=== PATIENT | female | born 1950 | race Caucasian/White ===

== ENCOUNTER 2017-05-01 11:28 | Emergency (ER) | payer OTHER ==
[2017-05-01 12:16] LABS: BILIRUBIN,URINE NEGATIVE (NEGATIVE); UA w/ MICROSCOPIC CHARGE YES
[2017-05-01 12:29] LABS: BASOPHILS # (AUTO) 0.1 10^3/uL (0.0-0.1); BASOPHILS % (AUTO) 1.1 %; EOSINOPHILS # (AUTO) 0.1 10^3/uL (0.0-0.7); HCT - HEMATOCRIT 37.9 % (37.0-47.0); HGB - HEMOGLOBIN 12.8 g/dL (12.0-16.0); LYMPHOCYTES # (AUTO) 1.3 10^3/uL (1.5-3.5); LYMPHOCYTES % (AUTO) 18.2 %; MEAN CORPUSCULAR HEMOGLOBIN 31.8 pg (27.0-31.0); MEAN CORPUSCULAR HGB CONC 33.8 g/dL (32.0-36.0); MEAN PLATELET VOLUME 9.5 fL (7.9-10.8); MONOCYTES # (AUTO) 0.9 10^3/uL (0.0-1.0); MONOCYTES % (AUTO) 12.2 %; NEUTROPHILS # (AUTO) 4.9 10^3/uL (1.5-6.6); NEUTROPHILS % (AUTO) 67.5 %; RED BLOOD COUNT 4.03 10^6/uL (4.20-5.40); RED CELL DISTRIBUTION WIDTH 12.5 % (12.0-15.0); UNCORRECTED WHITE BLOOD COUNT 7.2 x10^3/uL; WHITE BLOOD COUNT 7.2 x10^3/uL (4.8-10.8)
[2017-05-01 12:30] LABS: UR CULTURE IF IND NOT INDICATED
[2017-05-01 12:40] LABS: ALBUMIN/GLOBULIN RATIO 1.1 (1.0-2.2); BILIRUBIN,TOTAL 0.5 mg/dL (0.2-1.0); CALCIUM 9.9 mg/dL (8.5-10.3); CREATININE 1.4 mg/dL (0.4-1.0); POTASSIUM 3.8 mmol/L (3.5-5.0); TOTAL PROTEIN 8.3 g/dL (6.7-8.2)
[2017-05-01] MEDS ORDERED: SODIUM CHLORIDE 0.9% 1,000 ML IV ONE (12:55)
--- NOTE | 2017-05-01 12:59 | ED Physician Documentation ---
PD HPI ABD PAIN - Stated complaint Stated Complaint: ABDOMINAL PAIN - Chief complaint Chief Complaint: Abd Pain - History obtained from History obtained from: Patient - History of Present Illness Timing - onset: How many days ago (4) Timing - duration: Days (4) Timing - details: Gradual onset, Still present, Intermittant, Waxing and waning Quality: Cramping, Sharp, Pain Location: Suprapubic Radiation: Other Improved by: Other (nothing) Worsened by: Other (nothing) Associated symptoms: Nausea, Hematuria. No: Fever, Vomiting, Hematemesis, Diarrhea, Constipation, Dysuria Similar symptoms before: Has not had sx before Recently seen: Not recently seen - Additional information Additional information: 66-year-old female is visiting from [place] and has had suprapubic sharp cramping pains intermittently since 4 days ago. She states the pain is brief in nature repetitive and has not stopped. She has noticed blood in the urine as well. Review of Systems Constitutional: denies: Fever, Chills Eyes: denies: Decreased vision Ears: denies: Ear pain Nose: denies: Congestion Throat: denies: Sore throat Cardiac: denies: Chest pain / pressure, Palpitations Respiratory: denies: Cough, Wheezing GI: reports: Abdominal Pain, Nausea. denies: Vomiting, Diarrhea : reports: Hematuria. denies: Dysuria, Frequency Skin: denies: Rash Musculoskeletal: denies: Neck pain, Back pain, Extremity pain PD PAST MEDICAL HISTORY - Past Surgical History Ortho: Hip replacement - Present Medications Home Medications: Ambulatory Orders Medication Instructions Recorded Confirmed Ciprofloxacin HCl [Cipro] 500 mg PO BID #14 tablet 05/01/17 Metronidazole [Flagyl] 500 mg PO BID #14 tablet 05/01/17 - Allergies Allergies/Adverse Reactions: Allergies Allergy/AdvReac Type Severity Reaction Status Date / Time No Known Drug Allergies Allergy Verified 05/01/17 11:53 - Social History Does the pt smoke?: No Smoking Status: Never smoker Does the pt drink ETOH?: Yes ETOH Use: Wine PD ED PE NORMAL - Vitals Vital signs reviewed: Yes (hypertensive ) - General General: Alert and oriented X 3, No acute distress, Well developed/nourished - HEENT HEENT: Atraumatic, PERRL, EOMI - Neck Neck: Supple, no meningeal sign, No bony TTP - Cardiac Cardiac: RRR, No murmur - Respiratory Respiratory: No respiratory distress, Clear bilaterally - Abdomen Abdomen: Soft, Non tender, No organomegaly - Back Back: No CVA TTP, No spinal TTP - Derm Derm: Normal color, Warm and dry, No rash - Extremities Extremities: No deformity, No edema - Neuro Neuro: No motor deficit, No sensory deficit Eye Opening: Spontaneous Motor: Obeys Commands Verbal: Oriented GCS Score: 15 - Psych Psych: Normal mood, Normal affect Results - Vitals Vitals: Vital Signs - 24 hr 05/01/17 05/01/17 11:49 13:19 Temperature 36.4 C L 36.8 C Heart Rate 69 78 Respiratory 16 16 Rate Blood Pressure 150/88 H 141/64 H O2 Saturation 100 100 Oxygen O2 Source Room air - Labs Labs: Laboratory Tests 05/01/17 05/01/17 05/01/17 12:10 12:20 12:20 WBC 7.2 RBC 4.03 L Hgb 12.8 Hct 37.9 MCV 94.0 MCH 31.8 H MCHC 33.8 RDW 12.5 Plt Count 275 MPV 9.5 Neut # 4.9 Lymph # 1.3 L [place] # 0.9 Eos # 0.1 Baso # 0.1 Absolute Nucleated RBC 0.00 Nucleated RBC % 0.0 Sodium 135 Potassium 3.8 Chloride 97 L Carbon Dioxide 24 Anion Gap 14.0 H BUN 19 Creatinine 1.4 H Estimated GFR (MDRD) 38 L Glucose 113 H Calcium 9.9 Total Bilirubin 0.5 AST 23 ALT 16 Alkaline Phosphatase 53 Total Protein 8.3 H Albumin 4.4 Globulin 3.9 Albumin/Globulin Ratio 1.1 Lipase 26 Urine Color DARK YELLOW Urine Clarity HAZY Urine pH 6.0 Ur Specific [place] 1.025 Urine Protein 30 H Urine Glucose (UA) NEGATIVE Urine Ketones NEGATIVE Urine Occult Blood LARGE H Urine Nitrite NEGATIVE Urine Bilirubin NEGATIVE Urine Urobilinogen 0.2 (NORMAL) Ur Leukocyte Esterase NEGATIVE Urine RBC 11-25 H Urine WBC 4-5 Ur Squamous Epith Cells RARE Squamous Amorphous Sediment Few Urine Bacteria Few Urine Casts 3-5 RBC Casts Urine Yeast PRESENT Ur Microscopic Review INDICATED Urine Culture Comments NOT INDICATED - Rads (name of study) CT abdomen and pelvis without Radiology: Prelim report reviewed (Impression: 1. Sigmoid diverticulosis with mild wall thickening and adjacent fat stranding. Early sigmoid diverticulitis is the most likely diagnosis. 2. No complications such as perforation, obstruction or abscess. 3. No urinary tract stones or obstruction.), EMP read indepedently, See rad report Procedures - Bedside sono Bedside sono by EMP: With use of bedside ultrasound the right kidney is imaged there is some evidence of mild hydronephrosis and the kidney is sonographically nontender. The left kidney is imaged it is sonographically nontender and there is no evidence of hydronephrosis. PD MEDICAL DECISION MAKING - ED course Complexity details: reviewed results, re-evaluated patient, considered differential, d/w patient ED course: 66-year-old [place] has developed acute diverticulitis with some suprapubic pain and she has a normal white blood cell count she is not vomiting. She has pain that appears to be tolerable. Departure - Departure Disposition: 01 Home, Self Care Clinical Impression: Diverticulitis Condition: Stable Instructions: ED Diverticulitis Follow-Up: Your, doctor [Other] Prescriptions: Ciprofloxacin HCl [Cipro] 500 mg PO BID #14 tablet Metronidazole [Flagyl] 500 mg PO BID #14 tablet
[2017-05-01 13:20] VITALS: BP 141/64
--- NOTE | 2017-05-01 14:28 | CT Preliminary Report ---
Exam: CT ABDOMEN/PELVIS W/O IMPRESSION: 1. Sigmoid diverticulosis with no wall thickening and adjacent fat stranding. Early sigmoid diverticu litis is a most likely diagnosis. 2. No complications such as perforation, obstruction or abscess. 3. No urinary tract stones or obstruction. Comment: Study limited due to streak artifact related to the hip arthroplasty. [facility] SITE ID: [id number]
--- NOTE | 2017-05-01 14:43 | CT Report ---
EXAM: CT ABDOMEN AND PELVIS (CT KUB) EXAM DATE: 05/01/2017 01:39 PM. CLINICAL HISTORY: Hematuria, right-sided pain. COMPARISONS: None. TECHNIQUE: Routine axial helical CT imaging was performed through the abdomen and pelvis without IV c ontrast. Reconstructions: Coronal and sagittal. In accordance with CT protocol optimization, one or more of the following dose reduction techniques w ere utilized for this exam: automated exposure control, adjustment of mA and/or KV based on patient s ize, or use of iterative reconstructive technique. FINDINGS: Lung Bases: Unremarkable. Right Kidney/Ureter: No stones, hydronephrosis, or hydroureter. No perinephric fat stranding. Left Kidney/Ureter: No stones, hydronephrosis, or hydroureter. No perinephric fat stranding. Other Solid Organs: Noncontrast images of the solid organs are grossly unremarkable. Gallbladder/Bile Ducts: Fluid/fluid density is noted in the gallbladder without active inflammation. No common bile duct dilation. Peritoneal Cavity: No free fluid, free air or nam adenopathy. Bowel is grossly unremarkable. There are multiple diverticula seen which most severely affect the sigmoid colon. Mild stranding adjacent to the mid sigmoid colon best seen on image 65 is noted. Mild colonic wall thickening is noted. No co mplications such as obstruction, perforation or an abscess. Normal appendix noted. No right lower warren drant inflammation. Pelvic Organs: Coarse calcifications are noted in the left adnexal region. No bladder stones or wall thickening. Noncontrast images of the visualized pelvic organs are unremarkable. Vasculature: Unremarkable. Other: Status post left hip arthroplasty. Normal alignment. No osteoblastic osteolytic lesions are no carey. IMPRESSION: 1. Sigmoid diverticulosis with mild wall thickening and adjacent fat stranding. Early sigmoid diverti culitis is the most likely diagnosis. 2. No complications such as perforation, obstruction or abscess. 3. No urinary tract stones or obstruction. COMMENT: Study limited due to streak artifact related to the hip arthroplasty. [facility] Referring Provider Line: [phone] SITE ID: [id number]
== END 2017-05-01 15:11 | disposition home or self-care (01) ==
LOC: ED 11:28
DX: K57.32 Diverticulitis of large intestine without perforation or abscess without bleeding (principal)
CPT/HCPCS: 36415; 74176; 80053; 81001; 81003; 83690; 85025; 87086; 96360; 99283; 99284